=== PATIENT | male | born 1985 | race Hispanic/Latino ===

== ENCOUNTER 2018-07-28 20:06 | Emergency (ER) | payer OTHER ==
[2018-07-28 20:41] LABS: #Basophils 0.2 thou/uL (0.0-0.2); #Eosinphils 0.2 thou/uL (0.0-0.7); #Lymphocytes 3.3 thou/uL (1.20-3.40); #Monocytes 0.9 thou/uL (0.11-0.59); #Neutrophils 7.4 thou/uL (1.40-6.50); %Basophils 1.5 % (0.0-1.0); %Eosinophils 1.4 % (0.0-10.0); %Lymphocytes 27.5 % (21.0-51.0); %Monocytes 7.9 % (0.0-10.0); %Neutrophils 61.8 % (42.0-75.0); Hemoglobin 16.6 g/dL (14.0-18.0); Mean Corpuscular HGB CONC 34.5 g/dL (32.0-36.0); Mean Corpuscular Hemoglobin 32.7 pg (27.0-31.0); Mean Corpuscular Volume 94.9 fL (78.0-98.0); Mean Platelet Volume 6.7 fL (7.4-10.4); Platelet Count 417 thou/uL (130-400); RBC Distribution Width 11.5 % (11.5-14.5); Red Blood Cell (RBC) Count 5.08 mill/uL (4.70-6.10); White Blood Cell (WBC) Count 11.9 thou/uL (4.8-10.8)
--- NOTE | 2018-07-28 20:48 | RAD ---
FRONTAL VIEW CHEST 07/28/18 COMPARISON: 06/29/18 INDICATION: Chest pain. FINDINGS: There is no evidence of consolidation, effusion or pneumothorax. Cardiomediastinal silhouette is stab le. Osseous structures are intact. IMPRESSION: No focal consolidation. POS: [facility]
[2018-07-28 21:01] LABS: ALT (SGPT) 38 U/L (8-55); AST (SGOT) 20 U/L (5-34); Albumin 4.5 g/dL (3.5-5.0); Alkaline Phosphatase 131 U/L (40-150); Anion Gap 12 mmol/L (10-20); BUN (Urea Nitrogen) 12 mg/dL (8.9-20.6); Bilirubin, Total 0.6 mg/dL (0.2-1.2); CK (CPK) 109 U/L (30-200); Calc. Creatinine Clearance 0 mL/min (70-130); Calcium 9.9 mg/dL (7.8-10.44); Carbon Dioxide 28 mmol/L (22-29); Chloride 103 mmol/L (98-107); Estimated GFR-MDRD Greater than 90; Globulin 3.1 g/dL (2.4-3.5); Glucose 103 mg/dL (70-105); Potassium 3.6 mmol/L (3.5-5.1); Protein, Total 7.6 g/dL (6.0-8.3); Sodium 139 mmol/L (136-145)
== END 2018-07-28 21:49 | disposition home or self-care (01) ==
LOC: ERS 20:06
DX: R42 Dizziness and giddiness (principal); F41.9 Anxiety disorder, unspecified; Z87.891 Personal history of nicotine dependence
CPT/HCPCS: 36415; 71045; 80053; 82550; 83880; 84484; 85025; 93005

== ENCOUNTER 2018-09-14 15:42 | Emergency (ER) | payer OTHER ==
--- NOTE | 2018-09-14 16:50 | RAD ---
1 VIEW CHEST: Date: 09/14/18 COMPARISON: 07/28/18. FINDINGS: Normal cardiac silhouette. Pulmonary vessels and hilum are normal. Costophrenic angles are clear. No masses or consolidation. No pneumothorax or osseous abnormalities. IMPRESSION: No acute cardiopulmonary process. POS: [facility]
== END 2018-09-14 19:37 | disposition left against medical advice (07) ==
LOC: ERS 15:42
DX: Z53.21 Procedure and treatment not carried out due to patient leaving prior to being seen by health care provider (principal)
CPT/HCPCS: 71045; 93005

== ENCOUNTER 2018-10-31 11:57 | Emergency (ER) | payer OTHER, SELFPAY ==
[2018-10-31 12:24] LABS: #Basophils 0.1 thou/uL (0.0-0.2); #Eosinphils 0.1 thou/uL (0.0-0.7); #Lymphocytes 2.7 thou/uL (1.20-3.40); #Monocytes 0.6 thou/uL (0.11-0.59); #Neutrophils 6.7 thou/uL (1.40-6.50); %Basophils 0.9 % (0.0-1.0); %Eosinophils 1.4 % (0.0-10.0); %Lymphocytes 26.6 % (21.0-51.0); %Monocytes 5.5 % (0.0-10.0); %Neutrophils 65.7 % (42.0-75.0); Hemoglobin 16.4 g/dL (14.0-18.0); Mean Corpuscular HGB CONC 34.7 g/dL (32.0-36.0); Mean Corpuscular Hemoglobin 32.1 pg (27.0-31.0); Mean Corpuscular Volume 92.7 fL (78.0-98.0); Mean Platelet Volume 6.9 fL (7.4-10.4); Platelet Count 411 thou/uL (130-400); RBC Distribution Width 11.4 % (11.5-14.5); Red Blood Cell (RBC) Count 5.11 mill/uL (4.70-6.10); White Blood Cell (WBC) Count 10.2 thou/uL (4.8-10.8)
[2018-10-31 13:08] LABS: Bilirubin Small (Negative); Blood, Urine Negative (Negative); Clarity CLEAR (Clear); Glucose, Urine (Dipstick) Negative (Negative); Leukocyte Negative (Negative); Nitrite Negative (Negative); Protein, Urine (Dipstick) Negative (Neg-Trace); Urobilinogen 0.2 mg/dL (0.2-1.0); pH, Urine 5.5 (5.0-9.0)
[2018-10-31 13:18] LABS: ALT (SGPT) 33 U/L (8-55); AST (SGOT) 18 U/L (5-34); Albumin 4.4 g/dL (3.5-5.0); Alkaline Phosphatase 117 U/L (40-150); Anion Gap 11 mmol/L (10-20); BUN (Urea Nitrogen) 10 mg/dL (8.9-20.6); Bilirubin, Total 0.7 mg/dL (0.2-1.2); Calc. Creatinine Clearance 0 mL/min (70-130); Calcium 9.6 mg/dL (7.8-10.44); Carbon Dioxide 25 mmol/L (22-29); Chloride 105 mmol/L (98-107); Estimated GFR-MDRD Greater than 90; Globulin 3.1 g/dL (2.4-3.5); Glucose 107 mg/dL (70-105); Lipase 23 U/L (8-78); Potassium 3.7 mmol/L (3.5-5.1); Protein, Total 7.5 g/dL (6.0-8.3); Sodium 137 mmol/L (136-145)
== END 2018-10-31 14:21 | disposition home or self-care (01) ==
LOC: ERS 11:57
DX: F41.9 Anxiety disorder, unspecified (principal); R11.0 Nausea; Z87.891 Personal history of nicotine dependence
CPT/HCPCS: 36415; 80053; 81003; 83690; 84484; 85025; 93005

== ENCOUNTER 2019-03-21 12:56 | Emergency (ER) | payer SELFPAY ==
[2019-03-21 13:57] LABS: #Basophils 0.1 thou/uL (0.0-0.2); #Eosinphils 0.1 thou/uL (0.0-0.7); #Lymphocytes 2.8 thou/uL (1.20-3.40); #Monocytes 0.7 thou/uL (0.11-0.59); %Basophils 0.9 % (0.0-1.0); %Eosinophils 1.5 % (0.0-10.0); %Lymphocytes 29.3 % (21.0-51.0); %Monocytes 6.9 % (0.0-10.0); %Neutrophils 61.4 % (42.0-75.0); Hemoglobin 16.6 g/dL (14.0-18.0); Mean Corpuscular HGB CONC 35.9 g/dL (32.0-36.0); Mean Corpuscular Hemoglobin 33.1 pg (27.0-31.0); Mean Corpuscular Volume 92.2 fL (78.0-98.0); Mean Platelet Volume 6.9 fL (7.4-10.4); Platelet Count 401 thou/uL (130-400); RBC Distribution Width 11.6 % (11.5-14.5); Red Blood Cell (RBC) Count 5.01 mill/uL (4.70-6.10); White Blood Cell (WBC) Count 9.7 thou/uL (4.8-10.8)
--- NOTE | 2019-03-21 14:04 | RAD ---
XR Chest 1 View Portable History: Chest pain Comparison: Radiograph August Findings: Lungs are hypoinflated with bibasilar atelectasis. No pneumothorax. No effusion. Impression: Lung hypoinflation with bibasilar atelectasis. Mild elevation left hemidiaphragm.
[2019-03-21 14:25] LABS: ALT (SGPT) 37 U/L (8-55); AST (SGOT) 20 U/L (5-34); Albumin 4.2 g/dL (3.5-5.0); Alkaline Phosphatase 119 U/L (40-150); Anion Gap 12 mmol/L (10-20); BUN (Urea Nitrogen) 12 mg/dL (8.9-20.6); Bilirubin, Total 0.4 mg/dL (0.2-1.2); CK (CPK) 59 U/L (30-200); Calc. Creatinine Clearance 0 mL/min (70-130); Calcium 9.7 mg/dL (7.8-10.44); Carbon Dioxide 24 mmol/L (22-29); Chloride 104 mmol/L (98-107); Estimated GFR-MDRD Greater than 90; Globulin 3.1 g/dL (2.4-3.5); Glucose 103 mg/dL (70-105); Lipase 36 U/L (8-78); Potassium 3.7 mmol/L (3.5-5.1); Protein, Total 7.3 g/dL (6.0-8.3); Sodium 136 mmol/L (136-145)
== END 2019-03-21 15:00 | disposition home or self-care (01) ==
LOC: ERS 12:56
DX: R09.1 Pleurisy (principal); F41.9 Anxiety disorder, unspecified; Z87.891 Personal history of nicotine dependence
CPT/HCPCS: 36415; 71045; 80053; 82550; 83690; 84484; 85025; 93005

== ENCOUNTER 2022-01-18 17:04 | Emergency (ER) | payer SELFPAY ==
[2022-01-18 18:01] LABS: #Eosinphils 0.2 thou/uL (0.0-0.7); #Lymphocytes 3.1 thou/uL (1.20-3.40); #Monocytes 0.8 thou/uL (0.11-0.59); #Neutrophils 5.3 thou/uL (1.40-6.50); %Basophils 0.3 % (0.0-1.0); %Eosinophils 2.6 % (0.0-10.0); %Lymphocytes 32.4 % (21.0-51.0); %Monocytes 8.8 % (0.0-10.0); %Neutrophils 55.9 % (42.0-75.0); Hemoglobin 16.4 g/dL (14.0-18.0); Mean Corpuscular HGB CONC 34.1 g/dL (32.0-36.0); Mean Corpuscular Hemoglobin 33.1 pg (27.0-31.0); Mean Corpuscular Volume 97.1 fL (78.0-98.0); Platelet Count 376 thou/uL (130-400); RBC Distribution Width 11.6 % (11.5-14.5); Red Blood Cell (RBC) Count 4.96 mill/uL (4.70-6.10); White Blood Cell (WBC) Count 9.5 thou/uL (4.8-10.8)
[2022-01-18] MEDS ORDERED: Lorazepam 1 MG TAB ONE (18:01)
[2022-01-18 18:21] LABS: ALT (SGPT) 35 U/L (8-55); AST (SGOT) 20 U/L (5-34); Alkaline Phosphatase 105 U/L (40-110); Anion Gap 14 mmol/L (10-20); BUN (Urea Nitrogen) 10 mg/dL (8.9-20.6); Bilirubin, Total 0.8 mg/dL (0.2-1.2); Calc. Creatinine Clearance 0 mL/min (70-130); Calcium 9.5 mg/dL (7.8-10.44); Carbon Dioxide 23 mmol/L (22-29); Chloride 105 mmol/L (98-107); Estimated GFR 117; Glucose 95 mg/dL (70-105); Potassium 3.9 mmol/L (3.5-5.1); Sodium 138 mmol/L (136-145)
== END 2022-01-18 18:49 | disposition home or self-care (01) ==
LOC: ERS 17:04
DX: F41.9 Anxiety disorder, unspecified (principal); R07.89 Other chest pain; I10 Essential (primary) hypertension
CPT/HCPCS: 36415; 71045; 80053; 84484; 85025; 93005

== ENCOUNTER 2022-02-24 11:17 | Emergency (ER) | payer SELFPAY ==
[2022-02-24] MEDS ORDERED: Ketorolac Tromethamine 30 MG/ML VIAL ONE (12:01)
== END 2022-02-24 12:07 | disposition home or self-care (01) ==
LOC: ERS 11:17
DX: R51.9 Headache, unspecified (principal); Z87.891 Personal history of nicotine dependence
CPT/HCPCS: 96372; 99283; J1885